=== PATIENT | male | born 1995 | race Two or more races ===

== ENCOUNTER 2019-06-17 13:00 | Emergency (ER) | payer MEDICAID ==
[~2019-06-17] VITALS: Ht 162.6 cm; Wt 79.8 kg
[2019-06-17 13:11] VITALS: Ht 162.6 cm; Wt 79.8 kg
[2019-06-17 14:35] VITALS: BP 118/64
== END 2019-06-17 14:35 | disposition home or self-care (01) ==
LOC: ED 13:00
DX: K80.50 Calculus of bile duct without cholangitis or cholecystitis without obstruction (principal); Z88.6 Allergy status to analgesic agent
CPT/HCPCS: J3010; Q0162